=== PATIENT | female | born 1975 | race Asian ===

== ENCOUNTER → 2023-08-02 | Outpatient (CLI) | payer OTHER ==
[2023-08-03 05:08] LABS: MUMPS VIRUS IGG ANTIBODY 41.2 AU/mL (Immune >10.9); RUBELLA AB IGG-REFLAB 3.26 index (Immune >0.99)
== END | disposition home or self-care (01) ==
LOC: LABMN 12:45
PROVIDERS: ATTEND Internal Medicine
DX: Z01.89 Encounter for other specified special examinations (principal)
CPT/HCPCS: 86706; 86735; 86762; 86765; 86787